=== PATIENT | female | born 2005 | race African-American/Black ===

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

== ENCOUNTER 2025-05-26 07:43 | Emergency (ER) | payer BC, OTHER ==
[2025-05-26] MEDS ORDERED: Ibuprofen 200 MG TAB ONE (08:52)
== END 2025-05-26 09:00 | disposition home or self-care (01) ==
LOC: NAV ERS 07:43
DX: A08.4 Viral intestinal infection, unspecified (principal); I10 Essential (primary) hypertension
CPT/HCPCS: 99283; Q0162